=== PATIENT | male | born 1995 | race Caucasian/White ===

== ENCOUNTER 2022-08-25 08:01 | Day surgery (SDC) | payer OTHER ==
[2022-08-24 09:11] VITALS: BMI 29.5
[2022-08-25] MEDS ORDERED: BUPIVACAINE HCL/PF 0.25% (2.5MG/ML) 10 ML VIAL ONE ×3 (10:01→11:08)
[2022-08-25] MEDS ORDERED: MIDAZOLAM HCL 2 MG/2 ML SINGLE DOSE VIAL ONE (10:13)
[2022-08-25] MEDS ORDERED: BUPIVACAINE HCL/PF 0.25% (2.5MG/ML) 10 ML VIAL IJ ONE (11:01)
[2022-08-25 12:42] VITALS: BP 115/59; PULSE 61; RESP 18; TEMP 97.9
== END 2022-08-25 12:42 | disposition home or self-care (01) ==
LOC: FASU 08:01
PROVIDERS: ATTEND Orthopaedic Surgery
PROC: 0JBP0ZX Excision of Left Lower Leg Subcutaneous Tissue and Fascia, Open Approach, Diagnostic (ICD-10-PCS; principal; 2022-08-25 10:46)
DX: D18.09 Hemangioma of other sites (principal)
CPT/HCPCS: 88307-TC; 94760